=== PATIENT | female | born 1970 | race Hispanic/Latino ===

== ENCOUNTER 2017-08-19 15:52 | Outpatient (CLI) | payer BC | END 2017-08-19 15:53 | disposition home or self-care (01) | LOC: BICMAMMO 15:52 | PROVIDERS: ATTEND Family Medicine | DX: Z12.31 Encounter for screening mammogram for malignant neoplasm of breast (principal) | CPT/HCPCS: 77067 ==

== ENCOUNTER 2018-09-26 13:45 | Outpatient (CLI) | payer BC ==
--- NOTE | 2018-09-27 14:59 | MMO ---
FILMS COMPARED: Prior imaging studies performed at [facility] on 05/06/2015 and 07/03/2016 were reviewed. MAMMOGRAM FINDINGS: The breasts are heterogeneously dense, which could obscure a lesion on mammography. There are no suspicious masses, calcifications or areas of architectural distortion. IMPRESSION: THERE IS NO MAMMOGRAPHIC EVIDENCE OF MALIGNANCY. A ROUTINE FOLLOW-UP MAMMOGRAM IN 1 YEAR IS RECOMMENDED. ACR BI-RADS Category 1 - Negative
== END 2018-09-26 13:46 | disposition home or self-care (01) ==
LOC: BICMAMMO 13:45
PROVIDERS: ATTEND Family Medicine
DX: Z12.31 Encounter for screening mammogram for malignant neoplasm of breast (principal)
CPT/HCPCS: 77063; 77067

== ENCOUNTER 2019-12-28 15:17 | Outpatient (CLI) | payer BC ==
--- NOTE | 2019-12-28 15:55 | MMO ---
Bilateral MAMMO Bilat Screen [facility]. CLINICAL HISTORY: Patient is 49 years old and is seen for screening. The patient has no family history of breast cancer. The patient has no personal history of cancer. VIEWS: The views performed were: bilateral craniocaudal with tomosynthesis; bilateral mediolateral oblique with tomosynthesis; and bilateral exaggerated craniocaudal. FILMS COMPARED: The present examination has been compared to prior imaging studies performed at [facility] on 07/03/2016, 08/19/2017 and 09/26/2018. This study has been interpreted with the assistance of computer-aided detection. MAMMOGRAM FINDINGS: The breasts are heterogeneously dense, which could obscure a lesion on mammography. There are no suspicious masses, suspicious calcifications, or new areas of architectural distortion. IMPRESSION: THERE IS NO MAMMOGRAPHIC EVIDENCE OF MALIGNANCY. A ROUTINE FOLLOW-UP MAMMOGRAM IN 1 YEAR IS RECOMMENDED. THE RESULTS OF THIS EXAM WERE SENT TO THE PATIENT. ACR BI-RADS Category 1 - Negative MAMMOGRAPHY NOTE: 1. A negative mammogram report should not delay a biopsy if a dominant of clinically suspicious mass is present. 2. Approximately 10% to 15% of breast cancers are not detected by mammography. 3. Adenosis and dense breasts may obscure an underlying neoplasm. Reported by: KATELIN QUINTERO MD Electonically Signed: [id number]
--- NOTE | 2019-12-28 16:37 | RAD ---
TWO VIEW CHEST: 12/28/19 HISTORY: Cough. The lungs appear clear. No infiltrate seen. Heart and mediastinum unremarkable. IMPRESSION: No acute process. POS: AGW
--- NOTE | 2019-12-28 16:41 | RAD ---
SINUSES: 12/28/19 Three views. HISTORY: Cough and sinusitis. There is evidence of mucosal thickening in the periphery of the maxillary sinuses. No air fluid level . The frontal air cells appear well aerated. Sphenoid air cells appear clear on the lateral projectio n. Ethmoids are not well evaluated but appear well aerated. IMPRESSION: Evidence of mucosal edema in the maxillary sinuses. No evidence of air fluid level. CT scan may be of benefit to further characterize this sinus mucosal disease. POS: AGW
== END 2019-12-28 15:18 | disposition home or self-care (01) ==
LOC: BICMAMMO 15:17
PROVIDERS: ATTEND Family Medicine
DX: Z12.31 Encounter for screening mammogram for malignant neoplasm of breast (principal); R05 Cough; J01.41 Acute recurrent pansinusitis; J34.89 Other specified disorders of nose and nasal sinuses
CPT/HCPCS: 70220; 71046; 77063; 77067

== ENCOUNTER 2020-01-03 13:05 | Outpatient (CLI) | payer BC ==
--- NOTE | 2020-01-03 14:54 | ULT ---
ULTRASOUND PELVIC ULTRASOUND TRANSVAGINAL DOPPLER DUPLEX: DATE: 01/03/2020 HISTORY: 49-year-old female with abnormal vaginal bleeding TECHNIQUE: Transabdominal transducer and endovaginal transducer used to visualize intrapelvic contents with banegas scale, color-flow, and spectral analysis. FINDINGS: Uterus: 8 x 4.5 x 5.5 cm. Endometrial stripe: 0.9 cm (9 mm). Towards the fundus, there is bifurcation into double endometrial s tripes. Tiny amount of free fluid in cul-de-sac. Right ovary: 2.2 x 2.5 x 2.6 cm. Blood flow demonstrated in right ovarian parenchyma by Doppler. Right ovarian cyst: 2.2 x 2 x 2 cm. Left ovary surgically absent No moderate sized or large uterine leiomyoma (fibroid) identified. IMPRESSION: 1) uterine anomaly 2) thickened endometrial stripe 3) status post left oophorectomy
== END 2020-01-03 13:06 | disposition home or self-care (01) ==
LOC: BICULT 13:05
PROVIDERS: ATTEND Family Medicine
DX: N93.9 Abnormal uterine and vaginal bleeding, unspecified (principal); D50.9 Iron deficiency anemia, unspecified; R93.89 Abnormal findings on diagnostic imaging of other specified body structures; Q51.9 Congenital malformation of uterus and cervix, unspecified; Z90.721 Acquired absence of ovaries, unilateral
CPT/HCPCS: 76856

== ENCOUNTER 2020-12-27 15:42 | Outpatient (CLI) | payer BC | END 2020-12-27 15:43 | disposition home or self-care (01) | LOC: BICRAD 15:42 | PROVIDERS: ATTEND Family Medicine | DX: M25.552 Pain in left hip (principal); M75.52 Bursitis of left shoulder | CPT/HCPCS: 71045; 72170 ==

== ENCOUNTER 2021-02-13 13:24 | Outpatient (CLI) | payer BC | END 2021-02-13 13:25 | disposition home or self-care (01) | LOC: BICMAMMO 13:24 | PROVIDERS: ATTEND Family Medicine | DX: Z12.31 Encounter for screening mammogram for malignant neoplasm of breast (principal); Z13.820 Encounter for screening for osteoporosis; M85.89 Other specified disorders of bone density and structure, multiple sites; Z78.0 Asymptomatic menopausal state | CPT/HCPCS: 77063; 77067; 77080 ==

== ENCOUNTER 2021-07-22 12:05 | Outpatient (CLI) | payer BC | END 2021-07-22 12:06 | disposition home or self-care (01) | LOC: BICRAD 12:05 | PROVIDERS: ATTEND Family Medicine | DX: M85.88 Other specified disorders of bone density and structure, other site (principal); M25.559 Pain in unspecified hip | CPT/HCPCS: 72072; 72100 ==

== ENCOUNTER 2022-03-19 08:49 | Outpatient (CLI) | payer BC | END 2022-03-19 08:50 | disposition home or self-care (01) | LOC: BICMAMMO 08:49 | PROVIDERS: ATTEND Family Medicine | DX: Z12.31 Encounter for screening mammogram for malignant neoplasm of breast (principal) | CPT/HCPCS: 77063; 77067 ==

== ENCOUNTER 2024-02-18 08:48 | Outpatient (CLI) | payer BC | END 2024-02-18 08:49 | disposition home or self-care (01) | LOC: BICMRI 08:48 | PROVIDERS: ATTEND Orthopaedic Surgery Hand Surgery | DX: S63.591A Other specified sprain of right wrist, initial encounter (principal); S63.592A Other specified sprain of left wrist, initial encounter; M47.22 Other spondylosis with radiculopathy, cervical region; M48.02 Spinal stenosis, cervical region; M65.812 Other synovitis and tenosynovitis, left shoulder; S43.81XA Sprain of other specified parts of right shoulder girdle, initial encounter; M89.8X1 Other specified disorders of bone, shoulder; M94.8X1 Other specified disorders of cartilage, shoulder | CPT/HCPCS: 72141 ==

== ENCOUNTER 2024-04-17 07:53 | Outpatient (CLI) | payer BC ==
[2024-04-17 08:30] LABS: #Basophils 0.03 10x3/uL (0.0-0.2); %Basophils 0.6 % (0.0-1.0); %Eosinophils 2.1 % (0.0-10.0); %Neutrophils 57.1 % (42.0-75.0); Hematocrit 39.2 % (36.0-47.0); Hemoglobin 13.5 g/dL (12.0-16.0); Mean Corpuscular HGB CONC 34.4 g/dL (32.0-36.0); Mean Corpuscular Hemoglobin 30.1 pg (27.0-31.0); Mean Corpuscular Volume 87.5 fL (78.0-98.0); Mean Platelet Volume 11.7 fL (7.4-10.4); Platelet Count 195 10x3/uL (130-400); RBC Distribution Width 12.6 % (11.5-14.5); Red Blood Cell (RBC) Count 4.48 mill/uL (4.20-5.40)
[2024-04-17 08:58] LABS: BHCG - Serum POSITIVE (NEGATIVE); Pregs Control Background? CLEAR/WHITE (CLR/WHITE); Pregs Control Bar Appear? YES (CONTROL BAR)
[2024-04-18 12:34] LABS: BHCG - Serum POSITIVE (NEGATIVE); Pregs Control Background? CLEAR/WHITE (CLR/WHITE); Pregs Control Bar Appear? YES (CONTROL BAR)
== END 2024-04-17 07:54 | disposition home or self-care (01) ==
LOC: LABBT 07:53
PROVIDERS: ATTEND Orthopaedic Surgery Hand Surgery
DX: Z01.812 Encounter for preprocedural laboratory examination (principal); S63.591A Other specified sprain of right wrist, initial encounter; M24.831 Other specific joint derangements of right wrist, not elsewhere classified
CPT/HCPCS: 84702; 84703; 85025

== ENCOUNTER 2024-05-30 07:39 | Outpatient (CLI) | payer BC ==
[2024-05-30 09:25] LABS: #Basophils 0.03 10x3/uL (0.0-0.2); %Basophils 0.5 % (0.0-1.0); %Lymphocytes 35.5 % (21.0-51.0); %Monocytes 8.2 % (0.0-10.0); %Neutrophils 53.6 % (42.0-75.0); Hematocrit 39.3 % (36.0-47.0); Hemoglobin 13.5 g/dL (12.0-16.0); Mean Corpuscular HGB CONC 34.4 g/dL (32.0-36.0); Mean Corpuscular Hemoglobin 30.3 pg (27.0-31.0); Mean Corpuscular Volume 88.3 fL (78.0-98.0); Mean Platelet Volume 11.5 fL (7.4-10.4); Platelet Count 208 10x3/uL (130-400); RBC Distribution Width 12.3 % (11.5-14.5); Red Blood Cell (RBC) Count 4.45 mill/uL (4.20-5.40)
== END 2024-05-30 07:40 | disposition home or self-care (01) ==
LOC: LABBT 07:39
PROVIDERS: ATTEND Orthopaedic Surgery Hand Surgery
DX: S63.591A Other specified sprain of right wrist, initial encounter (principal); M25.831 Other specified joint disorders, right wrist
CPT/HCPCS: 85025; 93005; 93010

== ENCOUNTER 2024-06-02 09:51 | Day surgery (SDC) | payer BC ==
[2024-05-30 08:15] VITALS: BMI 24.7
[2024-06-02] MEDS ORDERED: fentaNYL 50 mcg/mL 1 mL Vial ONE (12:27)
[2024-06-02] MEDS ORDERED: Midazolam HCl 2 mg/2 ml Vial ONE (12:28)
[2024-06-02] MEDS ORDERED: Ropivacaine 0.5% HCl/PF (150 MG/30 ML VIAL) ONE (12:28)
[2024-06-02] MEDS ORDERED: EPINEPHrine 1 MG/ML VIAL ONE (13:33)
[2024-06-02] MEDS ORDERED: Bacitracin Zinc Ointment 30 gm TUBE ONE (13:33)
[2024-06-02] MEDS ORDERED: Bupivacaine PF 0.5% 30 ML VIAL ONE (13:33)
[2024-06-02] MEDS ORDERED: PROPOFOL 20 ML ONE (14:10)
[2024-06-02] MEDS ORDERED: Lidocaine 2% PF 5 ML VIAL ONE (14:10)
[2024-06-02] MEDS ORDERED: CEFAZOLIN 2 GM VIAL ONE (14:25)
[2024-06-02] MEDS ORDERED: fentaNYL PF 100 MCG/2 ML SYRINGE ONE (14:28)
[2024-06-02] MEDS ORDERED: Ketorolac Tromethamine 30 MG (1 mL) VIAL ONE (15:07)
[2024-06-02] MEDS ORDERED: Ondansetron PF 4 MG/2 ML Vial ONE (15:07)
[2024-06-02] MEDS ORDERED: Dexamethasone 20 MG/5 ML VIAL ONE (15:07)
[2024-06-02] MEDS ORDERED: ePHEDrine Sulfate 50 MG/10 ML VIAL ONE (15:20)
== END 2024-06-02 18:55 | disposition home or self-care (01) ==
LOC: SDC 09:51
PROVIDERS: ATTEND Orthopaedic Surgery Hand Surgery
PROC: 0MQ54ZZ Repair Right Wrist Bursa and Ligament, Percutaneous Endoscopic Approach (ICD-10-PCS; principal; 2024-06-02)
PROC: 0PBK0ZZ Excision of Right Ulna, Open Approach (ICD-10-PCS; principal; 2024-06-02)
PROC: 3E0T3BZ Introduction of Anesthetic Agent into Peripheral Nerves and Plexi, Percutaneous Approach (ICD-10-PCS; principal; 2024-06-02)
PROC: 0RBN4ZZ Excision of Right Wrist Joint, Percutaneous Endoscopic Approach (ICD-10-PCS; principal; 2024-06-02)
DX: S63.591A Other specified sprain of right wrist, initial encounter (principal); M65.841 Other synovitis and tenosynovitis, right hand; M25.831 Other specified joint disorders, right wrist; Z90.49 Acquired absence of other specified parts of digestive tract; X58.XXXA Exposure to other specified factors, initial encounter
CPT/HCPCS: A6223; C1713; J0171; J0665; J1100; J1885; J2250; J2405; J2704; J2795; J3010

== ENCOUNTER 2025-05-28 09:08 | Outpatient (CLI) | payer BC, OTHER ==
[2025-05-28 10:40] LABS: #Basophils 0.03 10x3/uL (0.0-0.2); #Eosinophils 0.07 10x3/uL (0.0-0.7); #Monocytes 0.35 10x3/uL (0.11-0.59); #Neutrophils 2.63 10x3/uL (1.40-6.50); %Basophils 0.6 % (0.0-1.0); %Eosinophils 1.5 % (0.0-10.0); %Lymphocytes 33.5 % (21.0-51.0); %Monocytes 7.5 % (0.0-10.0); %Neutrophils 56.7 % (42.0-75.0); Hematocrit 42.1 % (36.0-47.0); Hemoglobin 13.5 g/dL (12.0-16.0); Mean Corpuscular Hemoglobin 29.0 pg (27.0-31.0); Mean Corpuscular Volume 90.5 fL (78.0-98.0); Platelet Count 214 10x3/uL (130-400); Red Blood Cell (RBC) Count 4.65 mill/uL (4.20-5.40); White Blood Cell (WBC) Count 4.65 10x3/uL (4.8-10.8)
== END 2025-05-28 09:09 | disposition home or self-care (01) ==
LOC: LABBT 09:08
PROVIDERS: ATTEND Orthopaedic Surgery Hand Surgery
DX: Z01.818 Encounter for other preprocedural examination (principal); T84.84XA Pain due to internal orthopedic prosthetic devices, implants and grafts, initial encounter
CPT/HCPCS: 85025; 93005; 93010

== ENCOUNTER 2025-05-29 07:10 | Day surgery (SDC) | payer BC, OTHER ==
[2025-05-28 09:46] VITALS: BMI 24.7
[2025-05-29] MEDS ORDERED: CEFAZOLIN 2 GM VIAL ONE (07:58)
[2025-05-29] MEDS ORDERED: Famotidine/PF 20 mg/2ml Vial ONE (08:05)
[2025-05-29] MEDS ORDERED: Ketorolac Tromethamine 30 MG (1 mL) VIAL ONE ×2 (08:24→09:34)
[2025-05-29] MEDS ORDERED: Ondansetron PF 4 MG/2 ML Vial ONE (08:24)
[2025-05-29] MEDS ORDERED: HYDROcodone/Acetaminophen 5/325 mg Tablet ONE (09:49)
== END 2025-05-29 10:23 | disposition home or self-care (01) ==
LOC: SDC 07:10
PROVIDERS: ATTEND Orthopaedic Surgery Hand Surgery
PROC: 0RPL0JZ Removal of Synthetic Substitute from Right Elbow Joint, Open Approach (ICD-10-PCS; principal; 2025-05-29)
DX: T84.84XA Pain due to internal orthopedic prosthetic devices, implants and grafts, initial encounter (principal); M77.8 Other enthesopathies, not elsewhere classified; M67.833 Other specified disorders of tendon, right wrist; G56.23 Lesion of ulnar nerve, bilateral upper limbs; G56.03 Carpal tunnel syndrome, bilateral upper limbs; S63.591A Other specified sprain of right wrist, initial encounter; S63.592A Other specified sprain of left wrist, initial encounter; M25.831 Other specified joint disorders, right wrist; M62.9 Disorder of muscle, unspecified; M65.342 Trigger finger, left ring finger; M65.341 Trigger finger, right ring finger; M48.02 Spinal stenosis, cervical region; S52.23 Oblique fracture of shaft of ulna; S52.90 Unspecified fracture of unspecified forearm; M62.89 Other specified disorders of muscle; Z90.49 Acquired absence of other specified parts of digestive tract; Y83.1 Surgical operation with implant of artificial internal device as the cause of abnormal reaction of the patient, or of later complication, without mention of misadventure at the time of the procedure
CPT/HCPCS: A6223; J1100; J1308; J1885; J2250; J2405; J3010